=== PATIENT | female | born 1985 | race African-American/Black ===

== ENCOUNTER 2020-05-23 15:15 | Emergency (ER) | payer MEDICAID ==
[~2020-05-23] VITALS: Ht 157.5 cm; Wt 79.0 kg
[2020-05-23 15:16] VITALS: BP 102/82
[2020-05-23] MEDS ORDERED: IBUPROFEN 600MG TABLET PO ONE (15:45)
[2020-05-23] MEDS ORDERED: TETANUS, DIPHTHERIA, PERTUSSIS VAC/PF 0.5ML (>7YR OLD) IM ONE (16:00)
[2020-05-23 17:20] LABS: BASOPHILS % 0.4 % (0.0-2.0); EOSINOPHILS % 1.3 % (0.0-5.0); HEMATOCRIT. 38.4 % (36.0-48.0); HEMOGLOBIN. 13.1 g/dL (12.0-16.0); LYMPHOCYTES % 12.7 % (20.0-50.0); MEAN CORPUSCULAR HEMOGLOBIN 29.2 pg (28.0-32.0); MEAN CORPUSCULAR VOLUME 85.4 fL (81.0-99.0); MEAN PLATELET VOLUME 6.9 fl (7.4-10.4); MONOCYTES % 8.8 % (2.0-8.0); NEUTROPHILS % 76.8 % (40.0-76.0); PLATELET 385 x1000/uL (130-400); RED CELL DISTRIBUTION WIDTH 13.7 % (11.6-14.6)
[2020-05-23 17:28] LABS: CHLORIDE 104 mEq/L (98-107)
[2020-05-23 17:37] LABS: HCG SCREEN NEGATIVE
== END 2020-05-23 18:04 | disposition home or self-care (01) ==
LOC: ER 15:15
DX: S83.8X1A Sprain of other specified parts of right knee, initial encounter (principal); X58.XXXA Exposure to other specified factors, initial encounter; Y93.89 Activity, other specified; Y92.89 Other specified places as the place of occurrence of the external cause; Y99.8 Other external cause status; L03.115 Cellulitis of right lower limb
CPT/HCPCS: 36415; 73560; 80053; 84703; 85025; 86140; 90471; 90715; 99284